=== PATIENT | female | born 1980 | race Caucasian/White ===

== ENCOUNTER 2019-10-04 10:56 | Emergency (ER) | payer BC ==
[2019-10-04 13:39] VITALS: BP 109/72
--- NOTE | 2019-10-04 13:48 | UC ---
Respiratory Complaint HPI - HPI Summary HPI Summary: 39-year-old female presents with 2 day history of general malaise, fever, fatigue, mild shortness of breath, and a productive cough for yellow sputum. Max temp of 102.3 F. Reports that 2 weeks ago she tested positive for influenza A was starting to feel better until about 4 days ago when she started developing a sore throat. Was seen by her PCP 2 days ago and tested positive for strep and started on azithromycin but was not having other symptoms at that time. States her sore throat has improved and is only mildly sore present. Denies ear pain, dysphagia, chest pain, abdominal pain, nausea, or vomiting. - History of Current Complaint Chief Complaint: UCRespiratory Stated Complaint: COUGH Time Seen by Provider: 10/04/19 13:17 Hx Obtained From: Patient Hx Last Menstrual Period: on BCP/tubal Pain Intensity: 8 - Allergies/Home Medications Allergies/Adverse Reactions: Allergies Allergy/AdvReac Type Severity Reaction Status Date / Time MS Prochlorperazine Allergy Severe Tachycardia Verified 12/24/15 14:55 [From Compazine] prochlorperazine Allergy Severe Tachycardia Verified 10/04/19 13:25 [From Compazine] erythromycin base Allergy Intermediate Rash Verified 10/04/19 13:25 MS Erythromycin Allergy Intermediate Rash Verified 12/24/15 14:55 [Erythromycin] MS Penicillins [Penicillins] Allergy Intermediate Rash Verified 12/24/15 14:55 Penicillins Allergy Intermediate Rash Verified 10/04/19 13:25 MS Promethazine Allergy Unknown Unknown Verified 12/24/15 14:55 [From Phenergan] Reaction Details promethazine [From Phenergan] Allergy Unknown Unknown Verified 10/04/19 13:25 Reaction Details Home Medications: Home Medications ALPRAZolam TAB* [Xanax TAB*] 0.5 mg PO TID PRN 12/24/15 [History Confirmed 12/23] Escitalopram * [Lexapro (NF)] 40 mg PO DAILY 12/24/15 [History Confirmed ] Pantoprazole TAB * [Protonix TAB (NF)] 40 mg PO BID 12/24/15 [History Confirmed 10/04/19] lamoTRIgine TAB(*) [LaMICtal TAB(*)] 200 mg PO DAILY 12/24/15 [History Confirmed 10/04/19] Acetaminophen [Tylophen] 1,000 mg PO PRN 10/04/19 [History] Azithromycin TAB* [Zithromax TAB (Z-DEDRA) 250 mg #6 tabs] 250 mg PO DAILY [History Confirmed 10/04/19] Benzonatate CAP* [Tessalon 100 MG CAP*] 100 mg PO TID PRN #21 cap 10/04/19 [Rx] Ibuprofen TAB* [Advil TAB*] 800 mg PO Q6H PRN 10/04/19 [History Confirmed ] PMH/Surg Hx/FS Hx/Imm Hx GI/ History: Gastroesophageal Reflux Psychological History: Anxiety, Depression - Surgical History Surgical History: Yes Surgery Procedure, Year, and Place: gallbladder. appy. . 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 Negative: Ear Ache, Sinus Pain/Tenderness Respiratory: Positive: Shortness Of Breath, Cough Cardiovascular: Negative: Palpitations, Chest Pain Gastrointestinal: Negative: Abdominal Pain, Vomiting, Diarrhea, Nausea Genitourinary: Positive: Negative Musculoskeletal: Positive: Negative Neurological/Mental Status: Positive: Negative Is Patient Immunocompromised?: No Physical Exam - Summary Physical Exam Summary: GENERAL APPEARANCE: Well developed, well nourished, alert and cooperative, and appears to be in no acute distress. EYES: Conjunctiva clear. No drainage. EARS: External auditory canals and tympanic membranes clear, hearing grossly intact. NOSE: Moderate nasal congestion. No nasal discharge. THROAT: Mild pharyngeal erythema. No tonsilar inflammation, swelling, exudate, or lesions. Uvula midline. NECK: Neck supple, non-tender without lymphadenopathy. CARDIAC: Normal S1 and S2. No S3, S4 or murmurs. Rhythm is regular. There is no peripheral edema, cyanosis or pallor. Extremities are warm and well perfused. Capillary refill is less than 2 seconds. Peripheral pulses intact. LUNGS: Clear to auscultation without rales, rhonchi, wheezing or diminished breath sounds. Loose, nonproductive cough. ABDOMEN: Positive bowel sounds. Soft, nondistended, nontender. No guarding or rebound. No masses or hepatosplenomegally. MUSKULOSKELETAL: ROM intact to all extremities. No joint erythema or tenderness. Normal muscular development. Normal gait. SKIN: Skin normal color, texture and turgor with no lesions or eruptions. Triage Information Reviewed: Yes Vital Signs: Initial Vital Signs Temp 100 F 10/04/19 13:28 Pulse 99 10/04/19 13:28 Resp 32 10/04/19 13:28 BP 109/72 10/04/19 13:28 Pulse Ox 98 10/04/19 13:28 Vital Signs Reviewed: Yes Diagnostics - Radiology No standard instances Radiology Interpretation Completed By: Radiologist Summary of Radiographic Findings: Order Information: CHEST PA LAT 2 VWS. HISTORY: fever, cough, congestion. COMPARISONS: December 24, 2015 VIEWS: 4: Frontal dual-energy and lateral views of the chest. FINDINGS: CARDIOMEDIASTINAL SILHOUETTE: The cardiomediastinal silhouette is normal. DIANA: The diana are normal. PLEURA: The costophrenic angles are sharp. No pleural abnormalities are noted. LUNG PARENCHYMA: The lungs are clear. ABDOMEN: The upper abdomen is clear. There is no subphrenic gas. BONES AND SOFT TISSUES: No bone or soft tissue abnormalities are noted. OTHER: None. IMPRESSION: NO ACTIVE CARDIOPULMONARY DISEASE. Respiratory Course/Dx - Course Course Of Treatment: 39-year-old female presents with 2 day history of general malaise, fever, fatigue, mild shortness of breath, and a productive cough for yellow sputum. Max temp of 102.3 F. Reports that 2 weeks ago she tested positive for influenza A was starting to feel better until about 4 days ago when she started developing a sore throat. Was seen by her PCP 2 days ago and tested positive for strep and started on azithromycin but was not having other symptoms at that time. States her sore throat has improved and is only mildly sore present. Denies ear pain, dysphagia, chest pain, abdominal pain, nausea, or vomiting. Mildly elevated temperature of 100.0 F, mildly tachypneic otherwise vital signs stable. Patient had moderate nasal congestion, normal TMs, mild pharyngeal erythema without tonsillar swelling or exudate, no cervical lymphadenopathy, clear bilateral breath sounds, loose nonproductive cough, and otherwise unremarkable exam. Chest x-ray showed no acute cardiopulmonary disease. Reviewed results with the patient. We discussed that even though she tested positive for influenza a 2 weeks ago her current symptoms could be suggestive of an influenza B infection however patient is declining testing at this time. Recommending symptomatic treatment for an acute bronchitis including Tessalon Perles 1 capsule every 8 hours as needed for cough. Counseled the patient to continue to take her azithromycin as prescribed. She is to follow-up with her primary care provider in 3-5 days if symptoms are not improving. Anticipatory guidance and warning symptoms were reviewed with the patient. Verbalizes understanding and agrees with plan of care. - Differential Dx/Diagnosis Differential Diagnosis/HQI/PQRI: Bronchitis, Influenza, Lower Resp Infection, Sinusitis Provider Diagnosis: Acute bronchitis Discharge ED - Sign-Out/Discharge Documenting (check all that apply): Patient Departure All imaging exams completed and their final reports reviewed: No Studies - Discharge Plan Condition: Stable Disposition: HOME Prescriptions: Benzonatate CAP* [Tessalon 100 MG CAP*] 100 mg PO TID PRN #21 cap PRN Reason: Cough Patient Education Materials: Acute Bronchitis (ED) Referrals: Sharon Dwyer MD [Primary Care Provider] - 3 Days Additional Instructions: Your history and exam are consistent with acute bronchitis which is most often caused by a viral infection. Viral infections do not respond to antibiotics and are limited to the treatment of symptoms. Viral infections typically run their course in 7-10 days. Be aware that the cough with bronchitis may persist for 2-3 weeks even if other symptoms have improved. Get plenty of rest. Drink plenty of fluids. Run a cool mist humidifer in your room at night. Take over the counter acetaminophen (Tylenol) or ibuprofen (Advil, Motrin) according to directions as needed for pain or fever. Take Tessalon Perles 1 cap every 8 hours as needed for cough. Follow up with your primary care provider in 3-5 days if symptoms do not improve. Seek immediate medical attention in the emergency room if you have fever greater than 100.5 F despite taking acetaminophen or ibuprofen, have chest pain , difficulty breathing, or have any worsening of symptoms. - Billing Disposition and Condition Condition: STABLE Disposition: Home - Attestation Statements Provider Attestation: This patient was not seen by me. I was available for consult. Chart reviewed. CRISTA
== END 2019-10-04 14:35 | disposition home or self-care (01) ==
LOC: UCCORT 10:56
DX: J20.9 Acute bronchitis, unspecified (principal); K21.9 Gastro-esophageal reflux disease without esophagitis; F41.9 Anxiety disorder, unspecified; F32.9 Major depressive disorder, single episode, unspecified; Z79.899 Other long term (current) drug therapy; Z87.891 Personal history of nicotine dependence; Z88.8 Allergy status to other drugs, medicaments and biological substances; Z88.1 Allergy status to other antibiotic agents; Z88.0 Allergy status to penicillin
CPT/HCPCS: 71046; 99202; G0463